=== PATIENT | male | born 2000 | race African-American/Black ===

== ENCOUNTER 2021-10-16 16:31 | Emergency (ER) | payer SELFPAY ==
[2021-10-16 16:44] VITALS: BP 139/88
[2021-10-16] MEDS ORDERED: predniSONE 20 MG TABLET PO STA (17:04)
--- NOTE | 2021-10-16 17:04 | ED Physician Documentation ---
PD HPI SKIN - Stated complaint Stated Complaint: RASH LT ARM - Chief complaint Chief Complaint: Wound - History obtained from History obtained from: Patient - History of Present Illness Timing - onset: How many days ago (2) Timing - duration: Days (2) Timing - details: Gradual onset, Still present Location: Chest, LLE, Genitals Quality / character: Painful, Burning, Crusted, Swelling Contributing factors: Exposed to soap / lotion (lube for intercourse) Similar symptoms before: Diagnosis (eczema) Recently seen: Not recently seen - Additional information Additional information: 21-year-old Jose Hsu 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 He has not had any problem with eczema for quite a while and just 2 days ago with the use of some lube for intercourse he has developed some eczema again is developed some eczema in his left antecubital and on his chest but more significantly he has developed a rash on his penis that has desquamated some of the skin. Review of Systems Constitutional: denies: Fever Eyes: denies: Decreased vision Ears: denies: Ear pain Nose: denies: Congestion Throat: denies: Sore throat Cardiac: denies: Chest pain / pressure, Palpitations Respiratory: denies: Dyspnea, Cough GI: denies: Abdominal Pain, Nausea, Vomiting : denies: Dysuria, Frequency Skin: reports: Rash (Eczema tiny spot to the left antecubital bigger area of the anterior chest with typical dry lichenified skin. Examination of the penis shows multiple excoriated plaques with erythema consistent with a contact dermatitis. This does not appear like herpes.) Musculoskeletal: denies: Neck pain, Back pain, Extremity pain Neurologic: denies: Generalized weakness, Focal weakness, Numbness PD PAST MEDICAL HISTORY - Present Medications Home Medications: Ambulatory Orders Medication Instructions Recorded Confirmed predniSONE [Deltasone] 40 mg PO DAILY 5 Days #10 tablet 10/16/21 - Allergies Allergies/Adverse Reactions: Allergies Allergy/AdvReac Type Severity Reaction Status Date / Time No Known Drug Allergies Allergy Verified 10/16/21 16:44 - Social History Does the pt smoke?: No Smoking Status: Never smoker PD ED PE NORMAL - Vitals Vital signs reviewed: Yes (hypertensive ) - General General: Alert and oriented X 3, No acute distress, Well developed/nourished - HEENT HEENT: Atraumatic, PERRL, EOMI - Respiratory Respiratory: No respiratory distress - Derm Derm: Normal color, Warm and dry, Other (Eczema tiny spot to the left antecubital bigger area of the anterior chest with typical dry lichenified skin. Examination of the penis shows multiple excoriated plaques with erythema consistent with a contact dermatitis. This does not appear like herpes.) - Extremities Extremities: No deformity, No edema - Neuro Neuro: Alert and oriented X 3, record changer 2-12 intact, No motor deficit, No sensory deficit, Normal speech Eye Opening: Spontaneous Motor: Obeys Commands Verbal: Oriented GCS Score: 15 - Psych Psych: Normal mood, Normal affect Results - Vitals Vitals: Vital Signs - 24 hr 10/16/21 16:35 Temperature 36.8 C Heart Rate 105 H Respiratory 17 Rate Blood Pressure 139/88 H O2 Saturation 100 Oxygen O2 Source Room air PD MEDICAL DECISION MAKING - ED course Complexity details: considered differential, d/w patient ED course: 21-year-old male with a contact dermatitis to his penis secondary to the use of lube for intercourse. He has washed this off. He has not applied any cortisone. Here in the [facility] he is administered 40 mg of prednisone we will place him on a short course and I have asked encouraged the patient to obtain some hydrocortisone cream for this as well. Departure - Departure Disposition: 01 Home, Self Care Clinical Impression: Contact dermatitis and eczema Condition: Stable Instructions: ED Dermatitis Contact Follow-Up: [facility] [place] [Provider Group] Prescriptions: predniSONE [Deltasone] 40 mg PO DAILY 5 Days #10 tablet Comments: Jose, today it looks like this is a contact dermatitis which is an allergic reaction to a topical substance. The mainstay of treatment is to remove the offending agent and use a medication to reduce the reaction. We have given you a dose of prednisone here and I have e-scribed the remainder of the course to [facility] in [place].
== END 2021-10-16 17:28 | disposition home or self-care (01) ==
LOC: ED 16:31
DX: L25.8 Unspecified contact dermatitis due to other agents (principal)
CPT/HCPCS: 99282; 99284; J7512

== ENCOUNTER 2022-02-05 08:00 | Outpatient (CLI) | payer BC | END 2022-02-06 23:59 | disposition home or self-care (01) | LOC: LAB.N 08:00 | PROVIDERS: ATTEND Nurse Practitioner | DX: J03.90 Acute tonsillitis, unspecified (principal) | CPT/HCPCS: 87070 ==